=== PATIENT | male | born 1990 | race Caucasian/White ===

== ENCOUNTER 2016-06-18 20:11 | Emergency (ER) | payer SELFPAY ==
--- NOTE | 2016-06-18 21:34 | ER Document Report ---
ED Medical Screen (RME) - General Stated Complaint: CHEST PAIN Mode of Arrival: Medic Information source: Patient Notes: Patient complains of chest pain for the past 4-5 hours. Pain symptoms started while at rest. Patient states pain radiates to left upper extremity. Patient does complain of nausea. No cough symptoms. Denies any drug use. hx: GERD I have greeted and performed a rapid initial assessment of this patient. A comprehensive ED assessment and evaluation of the patient, analysis of test results and completion of the medical decision making process will be conducted by additional ED providers. TRAVEL OUTSIDE OF THE [place] IN LAST 30 DAYS: No - Related Data Allergies/Adverse Reactions: cetirizine HCl [From Zyrtec] Allergy (Verified 09/22/15 00:31) esomeprazole magnesium [From Nexium] Allergy (Verified 09/22/15 00:31) fexofenadine HCl [From Amy] Allergy (Verified 09/22/15 00:31) ibuprofen [From Motrin] Allergy (Verified 09/22/15 00:31) levofloxacin [From Levaquin] Allergy (Verified 09/22/15 00:31) Past Medical History Neurological Medical History: Reports: Hx Migraine Past Surgical History: Reports: Hx Appendectomy, Hx Nose Surgery, Hx Oral Surgery, Hx Tonsillectomy - Immunizations Immunizations up to date: No Hx Diphtheria, Pertussis, Tetanus Vaccination: No Physical Exam - Cardiovascular Rhythm: Regular Heart sounds: S1 appreciated, S2 appreciated - Psychological Associated symptoms: Anxious
[2016-06-18 22:48] LABS: ABSOLUTE LYMPHOCYTES (AUTO) 2.6 10^3/uL (0.5-4.7); ABSOLUTE MONOCYTES (AUTO) 0.5 10^3/uL (0.1-1.4); ABSOLUTE NEUT (AUTO) 3.7 10^3/uL (1.7-8.2); BASOPHILS % (AUTO) 0.6 % (0-2); EOSINOPHILS % (AUTO) 0.3 % (0-6); HEMOGLOBIN 14.5 g/dL (13.5-17.0); HGB HCT DIFFERENCE 0.5; LYMPHOCYTES % (AUTO) 37.5 % (13-45); MEAN CORPUSCULAR HEMOGLOBIN 30.1 pg (27.0-33.4); MEAN CORPUSCULAR HGB CONC 33.9 g/dL (32.0-36.0); MEAN CORPUSCULAR VOLUME 89 fl (80-97); MONOCYTES % (AUTO) 7.9 % (3-13); RED BLOOD COUNT 4.83 10^6/uL (4.35-5.55); RED CELL DISTRIBUTION WIDTH 13.2 % (11.5-14.0); SEGMENTED NEUTROPHILS % (AUTO) 53.7 % (42-78); WHITE BLOOD COUNT 6.9 10^3/uL (4.0-10.5)
[2016-06-18 22:58] LABS: AMORPHOUS SEDIMENT,URINE TRACE /HPF; APPEARANCE,URINE CLOUDY; BILIRUBIN,URINE NEGATIVE (NEGATIVE); GLUCOSE, URINE NEGATIVE (NEGATIVE); KETONES,URINE TRACE mg/dL (NEGATIVE); LEUKOCYTE ESTERASE,URINE NEGATIVE (NEGATIVE); NITRITE,URINE NEGATIVE (NEGATIVE); PROTEIN,URINE NEGATIVE (NEGATIVE); URINE SPECIFIC GRAVITY 1.018; UROBILINOGEN,URINE NEGATIVE mg/dL (<2.0)
[2016-06-18 23:09] LABS: ALANINE AMINOTRANSFERASE 31 U/L (21-72); ALBUMIN 4.4 g/dL (3.5-5.0); ALKALINE PHOSPHATASE 69 U/L (38-126); ANION GAP 15 (5-19); ASPARTATE AMINO TRANSFERASE 22 U/L (17-59); BILIRUBIN,TOTAL 0.8 mg/dL (0.2-1.3); BLOOD UREA NITROGEN 16 mg/dL (7-20); CALCIUM 9.6 mg/dL (8.4-10.2); CARBON DIOXIDE 22 mmol/L (22-30); CHLORIDE 105 mmol/L (98-107); CREATINE KINASE 125 U/L (55-170); GLUCOSE 95 mg/dL (75-110); LIPASE 132.4 U/L (23-300); POTASSIUM 3.7 mmol/L (3.6-5.0); SODIUM 141.8 mmol/L (137-145); URINE BARBITURATES SCREEN NEGATIVE; URINE METHADONE SCREEN NEGATIVE; URINE OPIATES LOW UNCONFIRMED POSITIVE; URINE PHENCYCLIDINE SCREEN NEGATIVE
[2016-06-18 23:35] LABS: CREATINE KINASE MB 0.23 ng/mL (<4.55)
[2016-06-18 23:36] LABS: TROPONIN I < 0.012 ng/mL
--- NOTE | 2016-06-19 01:09 | ER Document Report ---
ED General - General Mode of Arrival: Medic Information source: Patient TRAVEL OUTSIDE OF THE [place] IN LAST 30 DAYS: No - HPI Patient complains to provider of: Chest Pain Onset: This afternoon Onset/Duration: Sudden, Persistent Quality of pain: Pressure Associated symptoms: Other - Left arm and leg tingling <ELICEO LIMON - Last Filed: 06/19/16 02:12> <MACRINA CHEN - Last Filed: 06/19/16 06:17> - General Chief Complaint: Chest Pain Stated Complaint: CHEST PAIN Notes: Patient is 26-year-old male presenting to the emergency department from of chest pain onset approximately 8 hours ago. Patient states the pain came on while he was sitting down. Patient states the pain feels like somebody sitting on his chest, but he denies any pain with breathing. Patient also complains of tingling in his left arm and leg and left hand swelling. Patient denies any recent falls or lifting any heavy items. Patient states he was given nitroglycerin which somewhat relieved his pain. (ELICEO LIMON) - Related Data Allergies/Adverse Reactions: cetirizine HCl [From Zyrtec] Allergy (Verified 09/22/15 00:31) esomeprazole magnesium [From Nexium] Allergy (Verified 09/22/15 00:31) fexofenadine HCl [From Amy] Allergy (Verified 09/22/15 00:31) ibuprofen [From Motrin] Allergy (Verified 09/22/15 00:31) levofloxacin [From Levaquin] Allergy (Verified 09/22/15 00:31) Past Medical History - General Information source: Patient, [facility] Records - Social History Smoking Status: Current Every Day Smoker Frequency of alcohol use: Social Drug Abuse: None Family History: Reviewed & Not Pertinent, Hyperlipidemia, Hypertension, Malignancy, Thyroid Disfunction Patient has suicidal ideation: No Patient has homicidal ideation: No Neurological Medical History: Reports: Hx Migraine GI Medical History: Reports: Hx Gastroesophageal Reflux Disease Past Surgical History: Reports: Hx Appendectomy, Hx Cholecystectomy, Hx Nose Surgery, Hx Oral Surgery, Hx Tonsillectomy - Immunizations Immunizations up to date: No Hx Diphtheria, Pertussis, Tetanus Vaccination: No <ELICEO LIMON - Last Filed: 06/19/16 02:12> Review of Systems - Review of Systems Constitutional: No symptoms reported EENT: No symptoms reported Cardiovascular: See HPI, Chest pain Respiratory: No symptoms reported Gastrointestinal: No symptoms reported Genitourinary: No symptoms reported Male Genitourinary: No symptoms reported Musculoskeletal: No symptoms reported Skin: No symptoms reported Hematologic/Lymphatic: No symptoms reported Neurological/Psychological: See HPI, Tingling - Left arm and leg -: Yes All other systems reviewed and negative <ELICEO LIMON - Last Filed: 06/19/16 02:12> Physical Exam - General General appearance: Alert - HEENT Head: Normocephalic, Atraumatic Eyes: Normal Pupils: PERRL - Respiratory Respiratory status: No respiratory distress Chest status: Nontender Breath sounds: Normal Chest palpation: Normal - Cardiovascular Rhythm: Regular Heart sounds: Normal auscultation Murmur: No - Abdominal Inspection: Normal Distension: No distension Bowel sounds: Normal Tenderness: Nontender Organomegaly: No organomegaly - Back Back: Normal, Nontender - Extremities General upper extremity: Normal inspection, Nontender, Normal ROM, Normal strength. No: Edema General lower extremity: Normal inspection, Nontender, Normal ROM, Normal strength. 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 - Psychological Associated symptoms: Normal affect, Normal mood - Skin Skin Temperature: Warm Skin Moisture: Dry Skin Color: Normal <ELICEO LIMON - Last Filed: 06/19/16 02:12> Course - Laboratory Result Diagrams: 06/18/16 22:14 06/18/16 22:14 <ELICEO LIMON - Last Filed: 06/19/16 02:12> - Laboratory Result Diagrams: 06/18/16 22:14 06/18/16 22:14 - Diagnostic Test Radiology reviewed: Reports reviewed - EKG Interpretation by Me EKG shows normal: Sinus rhythm Rate: Normal Rhythm: NSR <MACRINA CHEN - Last Filed: 06/19/16 06:17> - Re-evaluation Re-evalutation: 06/19/16 Patient is a 26-year-old male who comes in with atypical chest pain. Patient also had some paresthesias. Patient is neurologically intact. Imaging, CT within normal limits. Patient feels better at this time. He'll be discharged home and is to follow-up with his doctor. Understands and agrees with plan. Grateful for care. (MACRINA CHEN) - Vital Signs Vital signs: Temp Pulse Resp BP Pulse Ox 97.7 F 92 28 H 108/78 100 06/18/16 21:34 06/18/16 21:34 06/18/16 21:34 06/18/16 21:34 06/18/16 21:34 (ELICEO LIMON) (MACRINA CHEN) - Laboratory Laboratory results interpreted by me: 06/18/16 22:14 Urine Ketones TRACE H (ELICEO LIMON) (MACRINA CHEN) Discharge <ELICEO LIMON - Last Filed: 06/19/16 02:12> <MACRINA CHEN - Last Filed: 06/19/16 06:17> - Discharge Clinical Impression: Atypical chest pain, Paresthesia and pain of left extremity Condition: Stable Disposition: HOME, SELF-CARE Instructions: Chest Pain of Unclear Cause ([facility]), Numbness or Paresthesia ([facility]) Prescriptions: Carisoprodol [Soma] 350 mg PO DAILYP PRN #10 tablet PRN Reason: Forms: Return to Work Scribe Attestation: 06/19/16 06:16 I personally performed the services described in the documentation, reviewed and edited the documentation which was dictated to the scribe in my presence, and it accurately records my words and actions. (MACRINA CHEN) Scribe Documentation - Scribe Written by Scribanaly:: Eliceo Limon 06/19/2016 0109 acting as scribe for :: Refugio <ELICEO LIMON - Last Filed: 06/19/16 02:12>
[2016-06-19] MEDS ORDERED: ONDANSETRON HCL INJ/PF 4 MG/2 ML SDV IV ONE (01:43)
[2016-06-19] MEDS ORDERED: MORPHINE SULFATE 10 MG/ML INJ IV ONE (01:43)
[2016-06-19 06:28] VITALS: BP 115/80
--- NOTE | 2016-06-19 08:03 | EKG REPORT ---
SEVERITY:- NORMAL ECG - SINUS RHYTHM : Confirmed by: Harpreet Arnold MD 19-Jun-2016 08:02:22
== END 2016-06-19 04:09 | disposition home or self-care (01) ==
LOC: ER 20:11
DX: R07.89 Other chest pain (principal); R20.2 Paresthesia of skin; M79.89 Other specified soft tissue disorders; F17.200 Nicotine dependence, unspecified, uncomplicated; Z88.8 Allergy status to other drugs, medicaments and biological substances; Z88.6 Allergy status to analgesic agent; Z88.1 Allergy status to other antibiotic agents
CPT/HCPCS: 93005; 99285; 96374; 96375; 36415; 82553; 82550; 83690; 85025; 80053; 81001; 84484; 80307; 71020; 70450; 71275; 93010; J2270; J2405

== ENCOUNTER 2016-11-14 20:45 | Emergency (ER) | payer SELFPAY ==
--- NOTE | 2016-11-14 23:28 | RADIOLOGY REPORT (SQ) ---
EXAM DESCRIPTION: CHEST SINGLE VIEW COMPLETED DATE/TIME: 11/14/2016 10:59 pm REASON FOR STUDY: CP COMPARISON: 06/18/2016 EXAM PARAMETERS: NUMBER OF VIEWS: One view. TECHNIQUE: Single frontal radiographic view of the chest acquired. RADIATION DOSE: NA LIMITATIONS: None. FINDINGS: LUNGS AND PLEURA: No acute opacities, masses or pneumothorax. No pleural effusion. MEDIASTINUM AND HILAR STRUCTURES: Stable. HEART AND VASCULAR STRUCTURES: Heart normal in size. Normal vasculature. BONES: No acute findings. HARDWARE: None in the chest. OTHER: No other significant finding. IMPRESSION: NO ACUTE RADIOGRAPHIC FINDING IN THE CHEST. TECHNICAL DOCUMENTATION: JOB ID: [id number]
[2016-11-14 23:48] LABS: ABSOLUTE LYMPHOCYTES (AUTO) 2.5 10^3/uL (0.5-4.7); ABSOLUTE MONOCYTES (AUTO) 0.5 10^3/uL (0.1-1.4); BASOPHILS % (AUTO) 0.3 % (0-2); EOSINOPHILS % (AUTO) 0.3 % (0-6); HEMATOCRIT 45.3 % (37.9-51.0); HGB HCT DIFFERENCE -0.3; LYMPHOCYTES % (AUTO) 31.4 % (13-45); MEAN CORPUSCULAR HEMOGLOBIN 29.9 pg (27.0-33.4); MEAN CORPUSCULAR VOLUME 91 fl (80-97); MONOCYTES % (AUTO) 6.1 % (3-13); RED CELL DISTRIBUTION WIDTH 13.5 % (11.5-14.0); SEGMENTED NEUTROPHILS % (AUTO) 61.9 % (42-78); WHITE BLOOD COUNT 8.1 10^3/uL (4.0-10.5)
--- NOTE | 2016-11-15 00:03 | ER Document Report ---
ED General - General Chief Complaint: Chest Pain Stated Complaint: CHEST PAIN Time Seen by Provider: 11/15/16 00:02 Notes: Patient is a 26-year-old who presents with complaint of chest pain. Patient says the pain is in a single spot location on the left sternal border of his chest. It does not radiate. He said today he did have some tingling sensation into the left arm but this has since gone away. No difficulty breathing. No fevers. No vomiting. He says he has had chest pains in the past related to anxiety but he feels that this is different in that it is in a single location. No recent leg pain or leg swelling. No recent travel. No recent surgeries. Pain is not made worse with deep breathing. No cough. No congestion. TRAVEL OUTSIDE OF THE [place] IN LAST 30 DAYS: No - Related Data Allergies/Adverse Reactions: cetirizine HCl [From Zyrtec] Allergy (Verified 09/22/15 00:31) esomeprazole magnesium [From Nexium] Allergy (Verified 09/22/15 00:31) fexofenadine HCl [From Amy] Allergy (Verified 09/22/15 00:31) ibuprofen [From Motrin] Allergy (Verified 09/22/15 00:31) levofloxacin [From Levaquin] Allergy (Verified 09/22/15 00:31) Past Medical History - Social History Smoking Status: Current Every Day Smoker Chew tobacco use (# tins/day): No Frequency of alcohol use: Occasional Drug Abuse: None Family History: Reviewed & Not Pertinent, Hyperlipidemia, Hypertension, Malignancy, Thyroid Disfunction Patient has suicidal ideation: No Patient has homicidal ideation: No Neurological Medical History: Reports: Hx Migraine Renal/ Medical History: Denies: Hx Peritoneal Dialysis GI Medical History: Reports: Hx Gastroesophageal Reflux Disease Past Surgical History: Reports: Hx Appendectomy, Hx Cholecystectomy, Hx Nose Surgery, Hx Oral Surgery, Hx Tonsillectomy - Immunizations Immunizations up to date: No Hx Diphtheria, Pertussis, Tetanus Vaccination: No Review of Systems - Review of Systems Notes: My Normal Review Basic REVIEW OF SYSTEMS: CONSTITUTIONAL : Denies fever, chills, or sweats. Denies recent illness. EENT: Denies eye, ear, throat, or mouth pain or symptoms. Denies nasal or sinus congestion. CARDIOVASCULAR: Has chest pain. RESPIRATORY: Denies cough, cold, or chest congestion. Denies shortness of breath, difficulty breathing, or wheezing. GASTROINTESTINAL: Denies abdominal pain. Denies nausea, vomiting, or diarrhea. Denies constipation. Last BM: MUSCULOSKELETAL: Denies neck or back pain or joint pain or swelling. SKIN: Denies rash or skin lesions. NEUROLOGICAL: Denies altered mental status or loss of consciousness. Denies headache. Denies weakness or paralysis or loss of use of either side. Denies problems with gait or speech. Denies sensory or motor loss. ALL OTHER SYSTEMS REVIEWED AND NEGATIVE. Physical Exam - Vital signs Vitals: Temp Pulse Resp BP Pulse Ox 97.8 F 79 22 H 120/68 99 11/14/16 21:14 11/14/16 21:14 11/14/16 21:14 11/14/16 21:14 11/14/16 21:14 - Notes Notes: General Appearance: Well nourished, alert, cooperative, no acute distress, mild obvious discomfort. Vitals: reviewed, See vital signs table. Head: no swelling or tenderness to the head Eyes: PERRL, EOMI, Conjuctiva clear Mouth: No decreasd moisture Chest wall: No reproducible pain to palpation of chest wall. Lungs: No wheezing, No rales, No rhonci, No accessory muscle use, good air exchange bilaterally. Heart: Normal rate, Regular rythm, No murmur, no rub Abdomen: Normal BS, soft, No rigidity, No abdominal tenderness, No guarding, no rebound, no abdominal masses, no organomegaly Extremities: strength 5/5 in all extremities, good pulses in all extremities, no swelling or tenderness in the extremities, no edema. Skin: warm, dry, appropriate color, no rash Neuro: speech clear, oriented x 3, normal affect, responds appropriately to questions. Course - Vital Signs Vital signs: Temp Pulse Resp BP Pulse Ox 98.3 F 79 14 110/73 99 11/15/16 01:56 11/14/16 21:15 11/15/16 01:57 11/15/16 01:57 11/15/16 01:57 - Laboratory Result Diagrams: 11/14/16 22:00 11/14/16 22:00 - EKG Interpretation by Me Additional EKG results interpreted by me: 11/15/16 00:02 EKG is reviewed and interpreted by me. EKG shows normal sinus rhythm with a rate of [address] segment elevation or depression. No ischemic T-wave inversions. [place] interval, QRS duration, QTc intervals are within normal range. Old EKG for comparison is unavailable at this time. - Transfer of Care Notes: 11/15/16 07:14 Patient's workup is negative. His chest x-ray is normal. He has no risk factors for PE and he is PERC rule negative. Patient will be discharged home, but encouraged to return to ER if has worsening pain, difficulty breathing, or change in location of pain. Patient agrees with plan and will be discharged home. Dictation of this chart was performed using voice recognition software; therefore, there may be some unintended grammatical errors. Discharge - Discharge Clinical Impression: Chest pain Qualifiers: Chest pain type: unspecified Qualified Code(s): R07.9 - Chest pain, unspecified Condition: Good Disposition: HOME, SELF-CARE Additional Instructions: Please take Tylenol for pain since you are allergic to Motrin. Please return to the ER if you have worsening pain, fevers, vomiting, or feel unwell. Please return to the ER if you have difficulty breathing, worsening of your symptoms, change in location of you chest pain, or have further concerns. Forms: Return to Work
[2016-11-15 00:08] LABS: ALANINE AMINOTRANSFERASE 32 U/L (21-72); ALBUMIN 4.3 g/dL (3.5-5.0); ALKALINE PHOSPHATASE 66 U/L (38-126); ANION GAP 10 (5-19); ASPARTATE AMINO TRANSFERASE 22 U/L (17-59); BILIRUBIN,DIRECT 0.3 mg/dL (0.0-0.4); BLOOD UREA NITROGEN 13 mg/dL (7-20); CALCIUM 9.2 mg/dL (8.4-10.2); CARBON DIOXIDE 26 mmol/L (22-30); CHLORIDE 104 mmol/L (98-107); CREATINE KINASE 97 U/L (55-170); CREATININE RESULT 0.75 mg/dL (0.52-1.25); GLUCOSE 90 mg/dL (75-110); POTASSIUM 3.8 mmol/L (3.6-5.0); SODIUM 139.7 mmol/L (137-145); TOTAL PROTEIN 7.4 g/dL (6.3-8.2)
[2016-11-15 00:25] LABS: TROPONIN I < 0.012 ng/mL
[2016-11-15 02:00] VITALS: BP 110/73
--- NOTE | 2016-11-15 07:57 | EKG REPORT ---
SEVERITY:- BORDERLINE ECG - SINUS RHYTHM LVH BY VOLTAGE : Confirmed by: Harpreet Arnold MD 15-Nov-2016 07:56:23
== END 2016-11-15 02:07 | disposition home or self-care (01) ==
LOC: ER 20:45
DX: R07.9 Chest pain, unspecified (principal); F17.200 Nicotine dependence, unspecified, uncomplicated
CPT/HCPCS: 36415; 71010; 80053; 82550; 82553; 84484; 85025; 93005; 93010; 99285

== ENCOUNTER 2019-01-25 09:28 | Emergency (ER) | payer SELFPAY ==
[2019-01-25 09:34] VITALS: BP 114/73
[2019-01-25] MEDS ORDERED: IPRATROPIUM/ALBUTEROL 0.5-2.5 MG/3 ML AMPUL NEB ONE (10:03)
[2019-01-25] MEDS ORDERED: ONDANSETRON HCL 8 MG TABLET PO ONE (10:03)
[2019-01-25] MEDS ORDERED: BENZONATATE 100 MG CAPSULE PO ONE (10:03)
[2019-01-25] MEDS ORDERED: DEXAMETHASONE SOD PHOS INJ 10 MG/1 ML VIAL IM ONE (10:03)
--- NOTE | 2019-01-25 10:08 | ER Document Report ---
HPI - HPI Time Seen by Provider: 01/25/19 09:50 Pain Level: 1 Context: Patient is a 28-year-old male presents to emergency department with chief complaint of shortness of breath. Patient states about 1 week ago he developed a persistent dry cough. Patient states he feels like his lungs are on fire when he attempted to take a deep breath or cough. Patient states he does smoke half a pack of cigarettes per day. Patient states he used to vape but quit 1 month ago. Patient reports he does not have a history of asthma or any other lung problems. Patient states he has had some vomiting and diarrhea. Patient states he has been able to tolerate liquids. Patient denies fever. Patient denies productive cough. - CONSTITUTIONAL Constitutional: DENIES: Fever, Chills - EENT EENT: REPORTS: Ear Pain - right ear. DENIES: Sore Throat, Eye problems - NEURO Neurology: DENIES: Headache, Weakness, Vision blurred, Dizzinesss / Vertigo - CARDIOVASCULAR Cardiovascular: DENIES: Chest pain - RESPIRATORY Respiratory: REPORTS: Trouble Breathing, Coughing - GASTROINTESTINAL Gastrointestinal: DENIES: Abdominal Pain, Black / Bloody Stools - URINARY Urinary: DENIES: Dysuria, Urgency, Frequency - MUSCULOSKELETAL Musculoskeletal: DENIES: Extremity pain Past Medical History - General Information source: Patient - Social History Smoking Status: Current Every Day Smoker Chew tobacco use (# tins/day): No Frequency of alcohol use: Occasional Drug Abuse: None Lives with: Family Family History: Reviewed & Not Pertinent, Hyperlipidemia, Hypertension, Malignancy, Thyroid Disfunction Patient has suicidal ideation: No Patient has homicidal ideation: No - Past Medical History Cardiac Medical History: Reports: None Pulmonary Medical History: Reports: None EENT Medical History: Reports: None Neurological Medical History: Reports: Hx Migraine Endocrine Medical History: Reports: None Renal/ Medical History: Reports: None. Denies: Hx Peritoneal Dialysis Malignancy Medical History: Reports None GI Medical History: Reports: Hx Gastroesophageal Reflux Disease Musculoskeletal Medical History: Reports None Skin Medical History: Reports None Psychiatric Medical History: Reports: None Traumatic Medical History: Reports: None Infectious Medical History: Reports: None Past Surgical History: Reports: Hx Appendectomy, Hx Cholecystectomy, Hx Nose Surgery, Hx Oral Surgery, Hx Tonsillectomy - Immunizations Immunizations up to date: No Hx Diphtheria, Pertussis, Tetanus Vaccination: No Vertical Provider Document - CONSTITUTIONAL Agree With Documented VS: Yes Exam Limitations: No Limitations General Appearance: No Apparent Distress - INFECTION CONTROL TRAVEL OUTSIDE OF THE [place] IN LAST 30 DAYS: No - HEENT HEENT: Atraumatic, Normocephalic, PERRLA - NECK Neck: Normal Inspection - RESPIRATORY Respiratory: Breath Sounds Normal, No Respiratory Distress Notes: Chest wall tender to palpation. - CARDIOVASCULAR Cardiovascular: Regular Rate, Regular Rhythm - GI/ABDOMEN Gastrointestinal: Abdomen Soft, Abdomen Non-Tender, Normal Bowel Sounds - NEURO Level of Consciousness: Awake, Alert, Appropriate - DERM Integumentary: Warm, Dry, No Rash Course - Re-evaluation Re-evalutation: 01/25/19 10:05 During initial evaluation patient sitting upright on stretcher no acute distress. During physical examination patient did have a intermittent dry cough. Will give medications as ordered. Patient in agreement with this plan. 01/25/19 11:27 Patient reports feeling better after receiving a breathing treatment. Patient reports he feels like he can breathe easier and is not short of breath. Will provide a albuterol inhaler to go home with. - Vital Signs Vital signs: Temp Pulse Resp BP Pulse Ox 97.8 F 83 19 114/73 98 01/25/19 09:32 01/25/19 09:32 01/25/19 09:32 01/25/19 09:32 01/25/19 09:32 - Diagnostic Test Radiology reviewed: Reports reviewed Radiology results interpreted by me: 01/25/19 11:28 Chest X-Ray 01/25/19 10:03 IMPRESSION: NO SIGNIFICANT RADIOGRAPHIC FINDING IN THE CHEST. Discharge - Discharge Clinical Impression: Bronchitis Condition: Stable Disposition: HOME, SELF-CARE Additional Instructions: Today you are seen in the emergency department for cough. We did obtain a chest x-ray which was negative for pneumonia or any acute lung abnormality. We have given you a dose of steroids. I am prescribing you a taper dose of steroids that you will take only as prescribed and he will start this tomorrow. Please refrain from smoking if possible as this can be a extremely irritant. Recovery from bronchitis can be slowed due to the smoking. We have also given you anti-nausea medication to go home with. Please use this as prescribed. Please continue to push fluids. Please return to emergency department if you develop a fever, severe shortness of breath, bloody sputum or if you do not improve after the dose of steroids. Bronchitis You have acute bronchitis. This disease is an infection or inflammation of the air passageways in your lungs. Symptoms usually include cough, low grade fever, shortness of breath, and wheezing. The cough usually persists for a couple of weeks. Most cases of bronchitis get better without antibiotics. We prescribe antibiotics when we believe bacteria are damaging your airways, or if there's high risk the bronchitis will worsen into pneumonia. Increase your fluid intake. A cool mist humidifier may make your lungs more comfortable. An expectorant (cough medicine that loosens phlegm) can help. If you smoke, STOP!!! Recovery from bronchitis can be somewhat slow, but you should see improvement within a day or two. Repeated episodes of bronchitis may result in lung damage -- for example, chronic bronchitis, recurrent pneumonias, or emphysema. Call the doctor if you develop increasing fever, shortness of breath, chest pain, bloody sputum, or otherwise worsen. If you have not improved at all after several days, contact the physician. Prescriptions: Benzonatate [Tessalon Perles 100 mg Capsule] 100 mg PO Q8HP PRN #20 capsule PRN Reason: Prednisone [Deltasone 10 mg Tablet] 10 mg PO ASDIR PRN #21 tablet PRN Reason: Ondansetron [Zofran Odt 4 mg Tablet] 1 tab PO Q6 #15 tab.rapdis Forms: Smoking Cessation Education, Return to Work
--- NOTE | 2019-01-25 11:26 | RADIOLOGY REPORT (SQ) ---
EXAM DESCRIPTION: CHEST 2 VIEWS COMPLETED DATE/TIME: 01/25/2019 11:04 am REASON FOR STUDY: cough x 1 week COMPARISON: 2017 TECHNIQUE: Frontal and lateral radiographic views of the chest acquired. NUMBER OF VIEWS: Two view. LIMITATIONS: None. FINDINGS: LUNGS AND PLEURA: No opacities, masses or pneumothorax. No pleural effusion. MEDIASTINUM AND HILAR STRUCTURES: No masses or contour abnormalities. HEART AND VASCULAR STRUCTURES: Heart normal size. No evidence for failure. BONES: No acute findings. HARDWARE: None in the chest. OTHER: No other significant finding. IMPRESSION: NO SIGNIFICANT RADIOGRAPHIC FINDING IN THE CHEST. TECHNICAL DOCUMENTATION: JOB ID: [id number] 1998 [employer]- All Rights Reserved Reading location - IP/workstation name: [email or web address]
[2019-01-25] MEDS ORDERED: ALBUTEROL SULFATE HFA (90 MCG/PUFF) 8 GM MDI (1 MDI/ER DISP) IH PRN (11:27)
[2019-01-25] MEDS ORDERED: ONDANSETRON ODT 4 MG TAB (6 TAB/ER DISP) PO SCH (11:30)
== END 2019-01-25 11:39 | disposition home or self-care (01) ==
LOC: ER 09:28
DX: J40 Bronchitis, not specified as acute or chronic (principal); R06.02 Shortness of breath; R05 Cough; F17.210 Nicotine dependence, cigarettes, uncomplicated
CPT/HCPCS: 71046; S0119; J1100; J3490; J7620; 94640; 96374; 99283